=== PATIENT | male | born 1990 | race Caucasian/White ===

== ENCOUNTER 2017-06-22 14:22 | Observation (INO) | payer MEDICAID ==
[2017-06-22] MEDS ORDERED: SODIUM CHLORIDE 0.9% 1,000 ML IV ONE (14:40)
[2017-06-22] MEDS ORDERED: ONDANSETRON 4 MG/2 ML VIAL IVP STA (14:40)
[2017-06-22] MEDS ORDERED: HYDROmorphone 1 MG/ML SYRINGE IVP STA ×3 (14:40→18:09)
--- NOTE | 2017-06-22 14:43 | ED Physician Documentation ---
PD HPI ABD PAIN - Stated complaint Stated Complaint: ABD PX - Chief complaint Chief Complaint: Abd Pain - History obtained from History obtained from: Patient - History of Present Illness Timing - onset: Other (Previously healthy 26-year-old gentleman without history of abdominal surgeries, or significant alcohol use. He has had episodic abdominal pain generalized radiating to the back for the last 5 days. He had it all day 6 days ago, then again 4 days ago. Today he has had it all day. He is nauseous but has not vomited. No changes in his bowel movements.) Review of Systems Ten Systems: 10 systems reviewed and negative Constitutional: denies: Fever, Chills Throat: denies: Dental pain / toothache, Sore throat Cardiac: denies: Chest pain / pressure, Palpitations Respiratory: denies: Dyspnea, Cough PD PAST MEDICAL HISTORY - Past Medical History Past Medical History: No - Past Surgical History Past Surgical History: No - Present Medications Home Medications: Ambulatory Orders Medication Instructions Recorded Confirmed No Known Home Medications [No 06/22/17 06/22/17 Known Home Medications] - Allergies Allergies/Adverse Reactions: Allergies Allergy/AdvReac Type Severity Reaction Status Date / Time No Known Drug Allergies Allergy Verified 06/22/17 14:26 - Social History Does the pt smoke?: No Smoking Status: Never smoker Does the pt drink ETOH?: No Does the pt have substance abuse?: No - Family History Family history: reports: Non contributory - Immunizations Immunizations are current?: Yes PD ED PE NORMAL - Vitals Vital signs reviewed: Yes - General General: Alert and oriented X 3, Other (Appears uncomfortable and in pain) - HEENT HEENT: PERRL, EOMI - Neck Neck: Supple, no meningeal sign, No bony TTP - Cardiac Cardiac: RRR, No murmur - Respiratory Respiratory: No respiratory distress, Clear bilaterally - Abdomen Abdomen: Other (Focally tender in the right upper quadrant with some diffuse tenderness and positive Gee sign, bedside ultrasound does demonstrate gallstones and a positive sonographic Gee sign.) - Back Back: No CVA TTP, No spinal TTP - Derm Derm: Normal color, Warm and dry - Extremities Extremities: No edema, No calf tenderness / cord - Neuro Neuro: Alert and oriented X 3, Normal speech - Psych Psych: Normal mood, Normal affect Results - Vitals Vitals: Vital Signs - 24 hr 06/22/17 06/22/17 14:26 18:14 Temperature 36.5 C Heart Rate 74 62 Respiratory 14 14 Rate Blood Pressure 134/91 H 112/64 O2 Saturation 97 97 Oxygen O2 Source Room air - Labs Labs: Laboratory Tests 06/22/17 06/22/17 06/22/17 14:50 14:50 14:50 WBC 14.2 H RBC 5.35 Hgb 16.3 Hct 47.5 MCV 88.6 MCH 30.5 MCHC 34.4 RDW 12.6 Plt Count 225 MPV 7.6 Neut # 12.1 H Lymph # 1.2 L [place] # 0.8 Eos # 0.0 Baso # 0.0 Absolute Nucleated RBC 0.00 Nucleated RBCs 0.0 Sodium 137 Potassium 4.1 Chloride 101 Carbon Dioxide 27 Anion Gap 9.0 BUN 12 Creatinine 0.8 Estimated GFR (MDRD) 116 Glucose 112 H Calcium 9.2 Total Bilirubin 0.6 AST 19 ALT 32 Alkaline Phosphatase 46 Total Protein 7.7 Albumin 4.6 Globulin 3.1 Albumin/Globulin Ratio 1.5 Lipase 21 L Urine Color YELLOW Urine Clarity CLEAR Urine pH 7.0 Ur Specific [place] 1.010 Urine Protein NEGATIVE Urine Glucose (UA) NEGATIVE Urine Ketones NEGATIVE Urine Occult Blood NEGATIVE Urine Nitrite NEGATIVE Urine Bilirubin NEGATIVE Urine Urobilinogen 0.2 (NORMAL) Ur Leukocyte Esterase NEGATIVE Ur Microscopic Review NOT INDICATED Urine Culture Comments NOT INDICATED - Rads (name of study) RUQ sono Radiology: EMP read contemporaneously (Cholelithiasis with a 1.3 cm nonmobile gallstone stuck at the gallbladder neck, nonmobile. Mild fatty liver with some calcifications and focal left intrahepatic biliary ductal dilatation.) PD MEDICAL DECISION MAKING - ED course ED course: 26-year-old gentleman with abdominal pain, suspect biliary colic on exam and he has a stone stuck in the neck on ultrasound so suspect his pain will quickly recur. Spoke with Dr. Smith, the on-call surgeon who will place in observation for interval cholecystectomy. Departure - Departure Disposition: ED Place in Observation Clinical Impression: Cholelithiasis Qualifiers: Cholelithiasis location: gallbladder Cholecystitis presence: without cholecystitis Biliary obstruction: without biliary obstruction Qualified Code(s) : K80.20 - Calculus of gallbladder without cholecystitis without obstruction Abdominal pain Qualifiers: Abdominal location: right upper quadrant Qualified Code(s): R10.11 - Right upper quadrant pain Condition: Stable Discharge Date/Time: 06/22/17 18:54
[2017-06-22 14:58] LABS: BASOPHILS % (AUTO) 0.3 %; EOSINOPHILS % (AUTO) 0.3 %; HCT - HEMATOCRIT 47.5 % (42.0-52.0); HGB - HEMOGLOBIN 16.3 g/dL (14.0-18.0); LYMPHOCYTES # (AUTO) 1.2 10^3/uL (1.5-3.5); LYMPHOCYTES % (AUTO) 8.5 %; MEAN CORPUSCULAR HEMOGLOBIN 30.5 pg (27.0-31.0); MEAN CORPUSCULAR HGB CONC 34.4 g/dL (32.0-36.0); MEAN CORPUSCULAR VOLUME 88.6 fL (80.0-94.0); MEAN PLATELET VOLUME 7.6 fL (7.4-11.4); MONOCYTES # (AUTO) 0.8 10^3/uL (0.0-1.0); MONOCYTES % (AUTO) 5.5 %; NEUTROPHILS # (AUTO) 12.1 10^3/uL (1.5-6.6); NEUTROPHILS % (AUTO) 85.4 %; RED BLOOD COUNT 5.35 10^6/uL (4.70-6.10); RED CELL DISTRIBUTION WIDTH 12.6 % (12.0-15.0); UNCORRECTED WHITE BLOOD COUNT 14.2 x10^3/uL; WHITE BLOOD COUNT 14.2 x10^3/uL (4.8-10.8)
[2017-06-22] MEDS ORDERED: ONDANSETRON 4 MG/2 ML VIAL ONE (15:00)
[2017-06-22] MEDS ORDERED: HYDROmorphone 1 MG/ML SYRINGE ONE ×3 (15:00→18:13)
[2017-06-22] MEDS ORDERED: SODIUM CHLORIDE FLUSH 0.9% 10 ML SYRINGE IVP ONE ×2 (15:01→18:13)
[2017-06-22 15:04] LABS: BILIRUBIN,URINE NEGATIVE (NEGATIVE)
[2017-06-22 15:15] LABS: ALBUMIN/GLOBULIN RATIO 1.5 (1.0-2.2); BILIRUBIN,TOTAL 0.6 mg/dL (0.2-1.0); CALCIUM 9.2 mg/dL (8.5-10.3); CREATININE 0.8 mg/dL (0.6-1.2); POTASSIUM 4.1 mmol/L (3.5-5.0); TOTAL PROTEIN 7.7 g/dL (6.7-8.2)
[2017-06-22 15:16] LABS: UA CHARGE (STRIP ONLY) YES; UR CULTURE IF IND NOT INDICATED
--- NOTE | 2017-06-22 16:13 | Ultrasound Report ---
EXAM: ABDOMEN ULTRASOUND LIMITED, RUQ EXAM DATE: 06/22/2017 03:49 PM. CLINICAL HISTORY: Abdominal pain, right upper quadrant, gallstone on bedside sono. Right upper quadra nt pain radiating to the back for 5 days. COMPARISON: None. TECHNIQUE: Real-time scanning was performed with static images obtained. FINDINGS: Liver: Mild diffuse increase echogenicity is seen with mild fatty liver. Multiple scattered small juancho er calcifications seen in the right hepatic lobe. Liver length 16.5 cm. Main portal vein flow: Hepato petal. Focal minimal intrahepatic bile duct dilatation in the left hepatic lobe measuring 3.4 mm. Gallbladder: Gallbladder wall measures 2.5 mm. No gallbladder wall thickening. Negative sonographic M urphy sign. No pericholecystic fluid. One non-mobile gallstone at gallbladder neck measuring 1.3 cm Biliary System: Common duct measures 3.6 mm. No common duct dilatation. Right kidney measures 12.4 cm in length and appears unremarkable. Visualized portions of the pancreas appear unremarkable. Most of the pancreas is not well seen. IMPRESSION: 1. Cholelithiasis without evidence for acute cholecystitis. See above. 2. There appears to be mild fatty liver. Multiple scattered small liver calcification seen in the rig ht hepatic lobe, could represent calcified granulomas. 3. Focal minimal intrahepatic bile duct dilatation in the left hepatic lobe measuring 3.4 mm. No comm on duct dilatation. [facility] Referring Provider Line: [phone] SITE ID: [id number]
[2017-06-22] MEDS ORDERED: SODIUM CHLORIDE FLUSH 0.9% 10 ML SYRINGE IVP PRN (18:29)
[2017-06-22] MEDS: MORPHINE 2 MG/ML SYRINGE IVP PRN ×2 (19:26→21:21)
[2017-06-22] MEDS: SODIUM CHLORIDE FLUSH 0.9% 10 ML SYRINGE IVP SCH (22:04)
[2017-06-22] MEDS ORDERED: ACETAMINOPHEN 325 MG TABLET PO PRN (22:08)
[2017-06-22] MEDS: LACTATED RINGERS 1,000 ML IV SCH (22:19)
[2017-06-23] MEDS: MORPHINE 2 MG/ML SYRINGE IVP PRN ×5 (01:28→18:53)
[2017-06-23] MEDS: LACTATED RINGERS 1,000 ML IV SCH ×2 (06:09→14:06)
[2017-06-23] MEDS: SODIUM CHLORIDE FLUSH 0.9% 10 ML SYRINGE IVP SCH ×2 (07:15→13:10)
[2017-06-23] MEDS: ONDANSETRON 4 MG/2 ML VIAL IVP PRN ×2 (08:16→18:53)
[2017-06-23] MEDS ORDERED: LACTATED RINGERS 1,000 ML IV ONE ×2 (14:26→16:14)
[2017-06-23] MEDS ORDERED: BUPIVACAINE 0.25%-EPI 1:200000 PF 30 ML VIAL SUBQ ONE ×2 (14:55)
[2017-06-23] MEDS ORDERED: ACETAMINOPHEN 1,000 MG/100 ML VIAL IV ONE (15:00)
[2017-06-23] MEDS ORDERED: fentaNYL 100 MCG/2 ML VIAL IVP ONE (15:00)
[2017-06-23] MEDS ORDERED: SUCCINYLCHOLINE 200 MG/10 ML VIAL IVP ONE (15:00)
[2017-06-23] MEDS ORDERED: LIDOCAINE-PF 2% 10 ML AMP SUBQ ONE (15:00)
[2017-06-23] MEDS ORDERED: ROCURONIUM 50 MG/5 ML VIAL IVP ONE (15:00)
[2017-06-23] MEDS ORDERED: MIDAZOLAM 2 MG/2 ML VIAL IVP ONE (15:00)
[2017-06-23] MEDS ORDERED: DEXAMETHASONE 4 MG/ML VIAL IVP ONE (15:00)
[2017-06-23] MEDS ORDERED: ONDANSETRON 4 MG/2 ML VIAL IVP ONE (15:00)
[2017-06-23] MEDS ORDERED: PROPOFOL 200 MG/20 ML VIAL IVP ONE (15:00)
--- NOTE | 2017-06-23 16:30 | Discharge Plan ---
Discharge Plan Disposition: 01 Home, Self Care Condition: Stable Prescriptions: Oxycodone HCl/Acetaminophen [Percocet 5-325 mg Tablet] 1 each PO Q4HR #30 tablet Diet: Regular Activity Restrictions: Activity as Tolerated Shower Restrictions: Yes (no shower for 24 hours) Driving Restrictions: Yes (not while on narcotics) Weight Bearing: Full Weight No Smoking: If you smoke, Please STOP! Call for help. Follow-up with: Kelsie Rehman PA-C [Primary Care Provider] - TL GARIBAY MD [Provider Admit Priv/Credential] - 4 Weeks
[2017-06-23] MEDS ORDERED: KETOROLAC 30 MG/ML VIAL IVP ONE (16:34)
[2017-06-23] MEDS ORDERED: KETOROLAC 15 MG/ML VIAL ONE (16:38)
--- NOTE | 2017-06-23 16:57 | HISTORY & PHYSICAL EXAMINATION ---
DATE OF ADMISSION: 06/22/2017 ADMITTING PHYSICIAN: Renita Smith MD. HISTORY OF PRESENT ILLNESS: This is a 26-year-old male who presented to the emergency department with a 1 day history of right upper quadrant pain and nausea. He denied any vomiting. He had a similar episode about a week ago, but this resolved on its own. He has never had similar episodes in the past and has never had any medical attention for gallbladder disorder in the past. Upon evaluation in the emergency department labs were performed which demonstrated white blood cell count of 14.2, and normal LFT's. An ultrasound of the gallbladder was subsequently performed which demonstrated a 1.3 cm stone in the neck of the gallbladder without any gallbladder wall thickening and without any surrounding pericholecystic fluid. Surgical consultation was obtained. Upon my evaluation of the patient, he was hemodynamically stable, complaining of moderate right upper quadrant pain and nausea. PAST MEDICAL HISTORY: Significant for GERD. PAST SURGICAL HISTORY: None. HOME MEDICATIONS: Omeprazole 20 mg once daily. ALLERGIES TO MEDICATIONS: NO KNOWN DRUG ALLERGIES. SOCIAL HISTORY: The patient is unmarried and he works at a [employer] and [employer]. He denies tobacco use. PHYSICAL EXAM: VITAL SIGNS: Temperature is 37.2, blood pressure 118/71, heart rate 65, respiratory rate 14, O2 saturation is 97% on room air. GENERAL: He is awake, alert, oriented x3 in no acute distress. He is of average build. CARDIOVASCULAR: Regular rate and rhythm. CHEST: Clear to auscultation bilaterally with no rhonchi or wheezing. ABDOMEN; Soft, nondistended. Tender to palpation in the right upper quadrant with no guarding and no rigidity. EXTREMITIES: Not edematous. LAB VALUES: White count 14.2, hemoglobin 16.3, hematocrit 47.5, platelets 225, sodium 137, potassium 4.1, chloride 101, bicarb 27, BUN 12, creatinine 0.8, glucose 112. ASSESSMENT: This is a 26-year-old male with biliary colic, possibly acute cholecystitis. PLAN: The patient will be admitted for observation and serial abdominal exams. If his pain is improved, we may discharge him home with interval followup for elective cholecystectomy. If his pain does not improve, then we will proceed with laparoscopic cholecystectomy tomorrow. The procedure was explained to the patient in detail including potential risks involved including but not limited to bleeding, infection, and damage to intra-abdominal organs. He understands all the above and agrees to proceed. JOB #: [id number] EXT JOB #:[id number] MIKHAIL
[2017-06-23] MEDS ORDERED: HYDROmorphone 1 MG/ML SYRINGE ONE (17:00)
[2017-06-23] MEDS ORDERED: oxyCODONE/ACET 5/325 Prepack 4 PO STA (20:06)
[2017-06-23] MEDS ORDERED: oxyCODONE/ACET 5/325 Prepack 4 PO ONE (20:41)
[2017-06-23 21:46] VITALS: BP 115/59
--- NOTE | 2017-06-24 09:38 | OPERATIVE REPORT ---
DATE OF SURGERY: 06/23/2017 00:00:00 PREOPERATIVE DIAGNOSIS: Biliary colic. POSTOPERATIVE DIAGNOSIS: Acute cholecystitis. PROCEDURE: Laparoscopic cholecystectomy. SURGEON: Renita Smith MD ANESTHESIA: General by Eric Gentile CRNA INDICATIONS FOR PROCEDURE: This is a 26-year-old male who presented to the emergency department with biliary colic, and ultrasound demonstrated a large stone in the neck of the gallbladder but no evidence of acute cholecystitis. He was admitted under observation, and his pain did not subside, and he was subsequently taken to the operating room today for urgent laparoscopic cholecystectomy. FINDINGS: After obtaining informed consent, the patient was brought into the operating room and positioned on the operating table in a supine position, taking note of pressure points. SCD boots were applied, and he was administered 2 grams of Ancef. He was intubated by Anesthesia. He was then prepped and draped in the usual sterile fashion, and a timeout was taken according to protocol. A 1 cm infraumbilical semi-circular incision was created and deepened down to the fascia. This was grasped and elevated and a Veress needle inserted. The abdominal cavity was insufflated. A 5 mm incision was created in the epigastric region to the right of the midline, and using the Optiview trocar, the 5 mm port was inserted; 2 additional ports were then inserted on the right subcostal margin. The gallbladder was noted to be edematous and adherent to the underlying omentum. The omentum was swept away from the gallbladder bluntly , and the gallbladder was attempted to be grasped, but it was too distended. The drainage needle was then inserted into the gallbladder, and approximately 80 mL of bilious fluid was drained. The gallbladder was then grasped and retracted over the dome of the liver. There were dense adhesions at the base of the gallbladder obstructing the view of the critical structures. I began dissecting in a [id number] fashion, opening the gallbladder attachments to the liver. I worked my way anteriorly carefully dissecting layer by layer, as there was a lot of inflammation in this area. A Calot node was dissected off the critical structures. I continued dissecting in this area until I was eventually able to visualize the cystic duct. The cystic duct was circumferentially cleared from surrounding tissue. The underlying hepatic artery was visualized during this process, and it was protected. The cystic duct was then clipped with 2 clips placed proximally, 1 distally, and divided. The cystic artery was then identified and was noted to be branching in several locations. Each branch was then clipped with 2 clips placed proximally, 1 distally, and divided. At this point, the gallbladder was then removed from the gallbladder fossa with a combination of blunt dissection and electrocautery. The gallbladder was so edematous that it easily peeled away from the gallbladder bed. There was no spillage of bile or stones during this process, but there was a significant amount of bleeding from the gallbladder fossa. The gallbladder was then placed in a specimen bag and removed through the umbilical port after extending it. The gallbladder fossa was then inspected and was irrigated profusely until all irrigation was clear. Hemostasis was then noted to be achieved. The umbilical incision was then closed with a Zane-Gino device using a knvjqv-cp-eoehu 0 Vicryl suture. The air was allowed to desufflate from the abdominal cavity, and all ports were removed. The skin incisions were then closed with 4-0 Monocryl, 30 mL of local anesthetic was infiltrated, and the patient was extubated and taken to recovery in stable condition. ESTIMATED BLOOD LOSS: 10 mL. COMPLICATIONS: None. SPECIMENS: Gallbladder. JOB #: [id number] EXT JOB #:[id number] MIKHAIL
--- NOTE | 2017-06-27 13:00 | PROVIDER PROGRESS NOTE ---
Subjective - Prog Note Date Prog Note Date: 06/30/17 - Subjective Pt reports feeling: No change Subjective: continues to have ruq pain and nausea Objective - Vital Signs/Intake & Output Reviewed Vital Signs: Yes - Objective General Appearance: positive: Moderate distress Respiratory: positive: No respiratory distress Cardiovascular: positive: Regular rate & rhythm Abdomen: positive: Other (soft, TTP RUQ) Extremities: positive: No pedal edema Neurologic/Psychiatric: positive: Oriented x3 - Lab Results Fish Bones: 06/22/17 14:50 06/22/17 14:50 Assessment/Plan - Problem List (1) Cholelithiasis Impression: Unresolving biliary colic vs acute cholecystitis. Will procee to operating room for laparoscopic cholecystectomy. Qualifiers: Cholelithiasis location: gallbladder Cholecystitis presence: without cholecystitis Biliary obstruction: without biliary obstruction Qualified Code(s): K80.20 - Calculus of gallbladder without cholecystitis without obstruction
== END 2017-06-23 21:40 | disposition home or self-care (01) ==
LOC: ED 14:22 → OBS 18:29
PROVIDERS: ADMIT Surgery; ATTEND Surgery
PROC: 0FT44ZZ Resection of Gallbladder, Percutaneous Endoscopic Approach (ICD-10-PCS; principal; 2017-06-23 13:15)
DX: K80.00 Calculus of gallbladder with acute cholecystitis without obstruction (principal); K21.9 Gastro-esophageal reflux disease without esophagitis
CPT/HCPCS: 47562; 76705; 80053; 81003; 83690; 85025; 96361; 96374; 96375; 96376; 99284; 99285; A9270; G0378; J0131; J1170; J7120; 81001; 87086

== ENCOUNTER 2018-04-26 15:30 | Emergency (ER) | payer OTHER ==
[2018-04-26 15:47] VITALS: BP 131/99
--- NOTE | 2018-04-26 16:41 | XRAY Report ---
EXAM: LEFT FIRST DIGIT RADIOGRAPHY EXAM DATE: 04/26/2018 04:25 PM. CLINICAL HISTORY: Trauma. COMPARISON: None. TECHNIQUE: 3 views. FINDINGS: Bones: No fractures or bone lesions. Joints: Unremarkable. Soft Tissues: Unremarkable. IMPRESSION: 1. No acute osseous abnormality. [facility] Referring Provider Line: [phone] SITE ID: [id number]
--- NOTE | 2018-04-26 16:41 | ED Physician Documentation ---
PD HPI UPPER EXT INJURY - Stated complaint Stated Complaint: THUMB INJURY - Chief complaint Chief Complaint: Ext Problem - History of Present Illness Location: Left, Finger (thumb) Type of injury: Crush (heavy metal dropped onto thumb, with small lac, and some blood under nail. Tingling at tip of thumb. Tetanus is not uptodate.) Where injury occurred: Work Timing - onset: Today Timing - details: Abrupt onset, Still present Worsened by: Moving, Palpating (just at distal thumb. Not at IP nor proximal.) Associated symptoms: Tingling, Swelling. No: Weakness, Numbness Similar symptoms before: Has not had sx before Recently seen: Not recently seen Review of Systems Skin: reports: Laceration (s) (small). denies: Rash Neurologic: denies: Focal weakness, Near syncope PD PAST MEDICAL HISTORY - Past Medical History Past Medical History: Yes Cardiovascular: None Respiratory: None Endocrine/Autoimmune: None GI: GERD : None HEENT: None Psych: None Musculoskeletal: None Derm: None - Past Surgical History Past Surgical History: Yes General: Cholecystectomy - Present Medications Home Medications: Ambulatory Orders Medication Instructions Recorded Confirmed Omeprazole [PriLOSEC] 20 mg PO DAILY 06/23/17 04/26/18 - Allergies Allergies/Adverse Reactions: Allergies Allergy/AdvReac Type Severity Reaction Status Date / Time No Known Drug Allergies Allergy Verified 04/26/18 15:46 - Social History Does the pt smoke?: No Smoking Status: Never smoker Does the pt drink ETOH?: Yes ETOH Use: Wine Does the pt have substance abuse?: No - Immunizations Immunizations are current?: Yes - POLST Patient has POLST: No PD ED PE NORMAL - Vitals Vital signs reviewed: Yes - General General: Alert and oriented X 3, No acute distress, Well developed/nourished - Derm Derm: Normal color, Warm and dry - Extremities Extremities: Other (left thumb with tendeerness, swelling distally. Not tender at IP nor proximal area. Nail with mild blood under proximal part without lifting of it. Nychia is intact. Small lac to side of nail base just 1/2 cm and not open. No FB and it is cleansed here. ) - Neuro Neuro: Alert and oriented X 3, No motor deficit, No sensory deficit, Normal speech Results - Vitals Vitals: Oxygen O2 Source Room air - Rads (name of study) left thumb Radiology: Prelim report reviewed, EMP read contemporaneously (no fractures) PD MEDICAL DECISION MAKING - ED course Complexity details: considered differential (small blood under nail, not enough to decompress. ), d/w patient - Sepsis Event Vital Signs: Oxygen O2 Source Room air Departure - Departure Disposition: 01 Home, Self Care Clinical Impression: Thumb contusion Qualifiers: Encounter type: initial encounter Damage to nail status: with damage Laterality : left Qualified Code(s): S60.112A - Contusion of left thumb with damage to nail , initial encounter Condition: Stable Record reviewed to determine appropriate education?: Yes Instructions: ED Contusion Finger Comments: Tylenol or ibuprofen if needed for pains. Use a splint as needed to protect the fingertip. Progress activity as able. There are no fractures so just bruised well but it will still be sore for several days. Progressive activity is okay. Recheck if signs of infection or other problems. Discharge Date/Time: 04/26/18 17:26
[2018-04-26] MEDS ORDERED: TETANUS/DIPHTHERIA/PERTUSSIS 0.5 ML SYRINGE IM ONE (17:20)
== END 2018-04-26 17:26 | disposition home or self-care (01) ==
LOC: ED 15:30
DX: S60.112A Contusion of left thumb with damage to nail, initial encounter (principal); Z23 Encounter for immunization; S61.012A Laceration without foreign body of left thumb without damage to nail, initial encounter; W20.8XXA Other cause of strike by thrown, projected or falling object, initial encounter; Y99.0 Civilian activity done for income or pay
CPT/HCPCS: 73140; 90471; 99282

== ENCOUNTER 2023-10-01 22:32 | Emergency (ER) | payer MEDICAID, OTHER ==
[2023-10-02] MEDS ORDERED: KETOROLAC 30 MG/ML VIAL IM STA (00:24)
--- NOTE | 2023-10-02 02:38 | ED Physician Documentation ---
History of Present Illness - Stated complaint Stated Complaint: RT LEG PX/NUMBNESS/DIZZY - Chief complaint Chief Complaint: Ext Problem - History obtained from History obtained from: Patient - Additonal information Additional information: 32yM previously healthy p/w R thigh vein discoloration and pain to the entire length of the leg with tingling/numb sensation X 1 day. no history of issues with the leg. no injury. denies hormone use, history of dvt, calf swelling, recent surgery, travel bedrest, cancer. PD PAST MEDICAL HISTORY - Past Medical History Past Medical History: Yes Cardiovascular: None Respiratory: None Neuro: Migraines Endocrine/Autoimmune: None GI: GERD : None HEENT: None Psych: None Musculoskeletal: None Derm: None - Past Surgical History Past Surgical History: Yes General: Cholecystectomy - Present Medications Home Medications: Ambulatory Orders Medication Instructions Recorded Confirmed Omeprazole [PriLOSEC] 20 mg PO DAILY 06/23/17 04/26/18 - Allergies Allergies/Adverse Reactions: Allergies Allergy/AdvReac Type Severity Reaction Status Date / Time No Known Drug Allergies Allergy Verified 10/01/23 22:50 - Social History Does the pt smoke?: No Smoking Status: Never smoker Does the pt drink ETOH?: Yes Does the pt have substance abuse?: No - Immunizations Immunizations are current?: Yes - POLST Patient has POLST: No PD ED PE NORMAL - Vitals Vital signs reviewed: Yes - General General: Alert and oriented X 3, No acute distress, Well developed/nourished - HEENT HEENT: Atraumatic, PERRL, EOMI, Moist mucous membranes, Pharynx benign - Neck Neck: Supple, no meningeal sign - Derm Derm: Normal color, Warm and dry - Extremities Extremities: No deformity, Other (R thigh with palpable and visible tortuous vein following femoral vein distribution of anterior thigh. ttp. R calf nontender to palpation. 2+ BL DP and PT pulses. CSM intact BL LE) Results - Vitals Vitals: Vital Signs - 24 hr 10/01/23 10/01/23 22:42 23:58 Temperature 36.7 C Heart Rate 74 Respiratory 18 18 Rate Blood Pressure 108/64 O2 Saturation 97 Oxygen O2 Source Room air PD Medical Decision Making - ED course ED course: 32yM presents to the ED with R thigh vein tortuosity, discoloration and swelling and RLE pain and tingling X 1 day. he has unknown history (mother adopted) but no personal history of dvt or apparent risk factors. given we have no ultrasound till 6am I offered to perform CT of the leg in the interim but patient elects to go home and come back at 6am. strict return precautions discussed. Departure - Departure Disposition: Home, Self Care Clinical Impression: Pain in extremity Condition: Stable Comments: You were seen in the emergency department for right leg venous swelling and discoloration as well as pain and numbness/tingling. Please return at 6am for ultrasound of the veins of the leg. There is a possibility you could have a DVT (deep vein thrombosis) of the leg, which would require urgent treatment with medicines to thin the blood.
[2023-10-02 02:44] VITALS: BP 122/83; O2SAT 100
== END 2023-10-02 02:43 | disposition home or self-care (01) ==
LOC: ED 22:32
DX: I83.811 Varicose veins of right lower extremity with pain (principal); R20.2 Paresthesia of skin
CPT/HCPCS: 96372; 99283

== ENCOUNTER 2023-10-02 13:47 | Emergency (ER) | payer MEDICAID ==
[2023-10-02 14:08] VITALS: BP 139/81; O2SAT 98
--- NOTE | 2023-10-02 14:59 | Ultrasound Report ---
PROCEDURE: Duplex Ext Veins Right INDICATIONS: RLE pain TECHNIQUE: Real-time imaging, as well as color and pulse Doppler interrogation, were performed of the lower extr emity deep veins from the inguinal ligament to the popliteal fossa. Attempted visualization of the ca lf veins was performed. COMPARISON: None. FINDINGS: The deep veins are normally compressible, and free of intraluminal thrombus. Color and pu lse Doppler demonstrate normal phasic intraluminal flow. There is normal augmentation response to di stal compression maneuver. No greater saphenous vein clot is noted. IMPRESSION: No deep venous thrombosis of the right lower extremity. Reviewed by: Casa Villanueva MD on 10/02/2023 2:57 PM PST Approved by: Casa Villanueva MD on 10/02/2023 2:57 PM PST Station ID: [id number]
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
== END 2023-10-02 15:28 | disposition home or self-care (01) ==
LOC: ED 13:47
DX: I83.11 Varicose veins of right lower extremity with inflammation (principal); M54.31 Sciatica, right side; R20.2 Paresthesia of skin
CPT/HCPCS: 96372; 99283; 99284